=== PATIENT | female | born 1975 | race Caucasian/White ===

== ENCOUNTER 2017-11-24 10:21 | Outpatient (REF) | payer MEDICAID, SELFPAY ==
--- NOTE | 2017-11-24 08:45 | PAPFT_PTH ---
PATIENT: Shanon Price LOC: [facility] U#:[id number] AGE/SX: 42/F ROOM: RE11/24/[address]: ADAM Barrios : 1975 BED: DIS: 11/24/2017 SPEC #: [id number] RECD: 11/24/17 13:04 STATUS: DANNY MORRELL #: [id number] ED: 11/24/17 08:[address]: Emma Tello DEPT: [facility] Cytology RECD BY: Jeanne Vidal ENTERED: 11/24/17 13:04 SP TYPE: PAPFT OT DR: Joanie Burns MD Tissues: 1 - CX/ENDOCX FOR PAP SMEARS Procedures: PAP THIN PREP/UVM Screening Comments: [id number]
== END 2017-11-24 10:41 ==
LOC: LBN 10:21
PROVIDERS: PCP Family Medicine; Visit Provider Nurse Practitioner Family
DX: R10.2 Pelvic and perineal pain (principal); Z12.4 Encounter for screening for malignant neoplasm of cervix
CPT/HCPCS: 88142; 87086

== ENCOUNTER 2018-04-18 08:08 | Emergency (ER) | payer MEDICAID, SELFPAY ==
[2018-04-18 08:12] VITALS: BP 136/84; PULSE 89; RESP 16; TEMP 37; O2SAT 95
--- NOTE | 2018-04-18 08:27 | ED.GENADUL_ITS ---
Discharge Plan Disposition Patient Disposition: HOME Condition: Improving Discharge Details Chief Complaint: Orthopedic Clinical Impression: Strain of right knee Primary Care Provider: Joanie Burns ED Provider: Stanley Lind Home Meds and New Rx's Prescriptions: Continued bupropion HCl 300 mg tablet extended release 24 hr 300 mg PO QAM Qty: 90 RF: 2 multivitamin 1 EACH tablet 1 tab PO DAILY RF: 0 cholecalciferol (vitamin D3) [Vitamin D3] 2,000 UNIT capsule 2,000 unit PO DAILY Qty: 90 RF: 4 omeprazole 20 mg capsule,delayed release(DR/EC) 20 mg PO DAILY Qty: 90 RF: 2 Discharge Instructions Instructions: Swollen Knee Joint (ED) Additional Instructions: Wear knee brace when up and walking, may remove at rest, in bed, to bathe. Please perform daily range of motion exercises as discussed. Crutches with weightbearing as tolerated. We will placed your name on the orthopedic follow-up list for reevaluation. Please call the office at [phone] and 24-48 hours for an appointment time. Ice and elevate to reduce pain and swelling. Tylenol and/or ibuprofen if needed for discomfort. Return if you develop numbness, tingling, cold or blue toes, or any other acute concerns Medical Decision Making Otherwise healthy 42-year-old female who slipped while trying to get into her truck when her right foot slipped off the running board and she struck the ground on an extended leg. She complained of knee pain that lasted through the night, minimally improved with elevation, worsened again this morning when trying to ambulate. She arrives with normal vital signs, otherwise unconcerned exam, and knee that appears contused and mildly swollen. She does not demonstrate laxity of the joint on exam. X-ray without bony injury. Will treat with immobilization, crutches with weightbearing as tolerated, follow-up with orthopedics for reevaluation of soft tissue knee injury. Discussed with patient home management as well as follow-up and return precautions HPI General Mode of arrival: ambulatory . Date/Time Provider Initiated Documentation: 04/18/18 08:10 . Limitations to Documentation: no limitations . Information obtained by: patient . History of Present Illness 42 year old F presents to the emergency department with the chief complaint of Right lower extremity pain, described as mild, Quality is described as aching, and is localized to the right and lower extremity. Patient reports no radiation. Patient started experiencing this minute(s) and it has been constant. Rest improves symptom(s), Movement worsens symptoms . Patient notes no other symptoms.. Patient did receive the following treatments prior to arrival, none Related Data Home Medications Medication Instructions Recorded Confirmed multivitamin 1 tab PO DAILY 06/06/12 03/31/18 cholecalciferol (vitamin D3) 2,000 unit PO DAILY #90 tab-cap 18 03/31/18 [Vitamin D3] omeprazole 20 mg capsule,delayed 20 mg PO DAILY #90 tab-cap 18 03/31/18 release bupropion HCl XL 300 mg 24 hr 300 mg PO QAM #90 tab 03/13/18 03/31/18 tablet, extended release Previous Rx's Medication Instructions Recorded cholecalciferol (vitamin D3) 2,000 unit PO DAILY #90 tab-cap 07/25/17 [Vitamin D3] omeprazole 20 mg capsule,delayed 20 mg PO DAILY #90 tab-cap 12/07/17 release bupropion HCl XL 300 mg 24 hr 300 mg PO QAM #90 tab 03/13/18 tablet, extended release Allergies Allergy/AdvReac Type Severity Reaction Status Date / Time codeine Allergy Intermediate Rash Unverified 04/18/18 08:15 General Stated Complaint: Orthopedic RAYMOND: 4 Review of Systems Review of Systems 6 systems reviewed and otherwise negative [facility] Medical History Personal history of cervical dysplasia (Acute) Surgical History Dilation and curettage Ligation of fallopian tube Family History Mother Diabetes Essential hypertension Heart disease Stroke Father Asthma Cancer Sister Substance abuse Diabetes Sister No problems noted. Sister No problems noted. Brother No problems noted. Brother No problems noted. Brother No problems noted. Son No problems noted. Daughter No problems noted. Social History caregiver/support person: No household members: spouse and children housing: house pets and animals: Yes pets and animals: dog(s) sexually active: Yes do you think of yourself as: straight/heterosexual frequency: does not exercise Smoking and Tabacco status: Former Tobacco Use quit date: 02/22/16 alcohol intake: current alcohol intake frequency: holidays/special occasions only Alcohol type: beer substance use type: does not use doris/rastafari: No preference special doris needs: No Seatbelt use: always Female Reproductive History Menstrual Duration of menses: 6-7 days control method: progestin IUCD History History 3 Para Hx # Term Pregnancies 2 Multiple births Hx # Pregnancies Ectopic pregnancies AB induced Hx Number of Living Children AB spontaneous Exam Narrative Exam Narrative: GEN: awake, alert, oriented 3. Pleasant, well groomed, interactive. HEAD: Normocephalic, atraumatic ENT: Mucous membranes moist, oropharynx unremarkable, External ear exam unremarkable EYES: PERRL, EOMI NECK: Full ROM, no ALEJANDRO, no menigismus CHEST/RESP: Nontender, no respiratory EXT: Full ROM, no edema, no rash. Exam of the right knee reveals mild, diffuse tenderness. There is bruising on the lateral aspect. She is tender along the lateral aspect of the knee. She does not demonstrate laxity. No tenderness of the overlying the patella. No tenderness of the proximal tibia Neuro: Grossly normal neurologic exam, conversant, interactive. Psych: Speech fluent, thoughts congruent, affect normal Course Vital Signs Temperature 37 C 04/18/18 08:12 Pulse 89 04/18/18 08:12 Respiratory Rate 16 04/18/18 08:12 Blood Pressure 136/84 04/18/18 08:12 Pulse Oximetry 95 04/18/18 08:12 Temperature 37 C 04/18/18 08:12 Temperature Source Skin 04/18/18 08:12 Pulse 89 04/18/18 08:12 Respiratory Rate 16 04/18/18 08:12 Blood Pressure 136/84 04/18/18 08:12 Pulse Oximetry 95 04/18/18 08:12 Oxygen Delivery Method Room Air 04/18/18 08:12 Oxygen Flow Rate 0 04/18/18 08:12 Pain Level 9 04/18/18 08:12
--- NOTE | 2018-04-18 08:31 | DI.RAD_ITS ---
SYMPTOM/DIAGNOSIS: FELL, RT KNEE PAIN RIGHT KNEE: Four views. Comparison is made with 07/15/13. No acute fracture or dislocation is seen. There is a small joint effusion present. The soft tissues are otherwise unremarkable. IMPRESSION: Small joint effusion. No acute fracture or dislocation.
[2018-04-18] MEDS: Ibuprofen 800 MG TAB PO (09:10)
== END 2018-04-18 09:48 | disposition home or self-care (01) ==
PROVIDERS: Emergency Provider Emergency Medicine; PCP Family Medicine
DX: S83.91XA Sprain of unspecified site of right knee, initial encounter (principal); X50.9XXA Other and unspecified overexertion or strenuous movements or postures, initial encounter; V58.5XXA Driver of pick-up truck or van injured in noncollision transport accident in traffic accident, initial encounter
CPT/HCPCS: 29505; 73562; 99283; E0114; L1830

== ENCOUNTER 2018-07-25 02:04 | Outpatient (CLI) | payer MEDICAID, SELFPAY ==
[2018-07-25 11:05] LABS: Anion Gap 9.4 mmol/L (3-11); BUN 19 mg/dL (7-18); CO2 24.6 mmol/L (21.0-32.0); CREATININE 0.84 mg/dL (0.55-1.02); Chloride 103 mmol/L (98-107); Glucose 98 mg/dL (70-100); Potassium 4.2 mmol/L (3.5-5.1); Sodium 137 mmol/L (136-145)
[2018-07-25 11:18] LABS: Hemoglobin A1C 5.7 % (4.5-6.2)
[2018-07-27 06:25] LABS: Vitamin D 25 Total 48.2 ng/ml (30-100)
== END 2018-07-25 02:24 ==
PROVIDERS: PCP Family Medicine; Visit Provider Family Medicine
DX: R73.9 Hyperglycemia, unspecified (principal); E55.9 Vitamin D deficiency, unspecified
CPT/HCPCS: 36415; 80048; 82306; 83036

== ENCOUNTER 2018-12-14 10:02 | Outpatient (REF) | payer MEDICAID, SELFPAY ==
--- NOTE | 2018-12-14 09:30 | PAPFT_PTH ---
PATIENT: Shanon Price LOC: [facility] U#:[id number] AGE/SX: 43/F ROOM: RE12/14/[address]: ADAM Barrios : 1975 BED: DIS: 12/14/2018 SPEC #: [id number] RECD: 12/14/18 13:17 STATUS: DANNY RERuddy #: [id number] ED: 12/14/18 09:[address]: Emma Tello DEPT: [facility] Cytology RECD BY: Jeanne Vidal ENTERED: 12/14/18 13:18 SP TYPE: PAPFT OT DR: Joanie Burns MD Tissues: 1 - CX/ENDOCX FOR PAP SMEARS Procedures: PAP THIN PREP/UVM Screening Comments: [id number]
== END 2018-12-14 10:22 ==
LOC: LBN 10:02
PROVIDERS: PCP Family Medicine; Visit Provider Nurse Practitioner Family
DX: Z12.4 Encounter for screening for malignant neoplasm of cervix (principal)
CPT/HCPCS: 88142

== ENCOUNTER → 2020-01-01 09:43 | Outpatient (REF) | payer OTHER, SELFPAY ==
--- NOTE | 2020-01-01 09:15 | PAPFT_PTH ---
PATIENT: Shanon Price LOC: [facility] U#:[id number] AGE/SX: 49/F ROOM: RE01/01/[address]: ADAM Barrios : 1975 BED: DIS: SPEC #: [id number] RECD: 01/01/20 12:43 STATUS: DANNY REQ #: [id number] ED: 01/01/20 09:[address]: Emma Tello DEPT: [facility] Cytology RECD BY: Jeanne Vidal ENTERED: 01/01/20 12:44 SP TYPE: PAPFT OTHR DR: Joanie Burns MD Tissues: 1 - CX/ENDOCX FOR PAP SMEARS Procedures: PAP THIN PREP/UVM Screening HPV DNA PROBE Comments: [id number] (CVPH#)
== END ==
LOC: LBN 09:43
PROVIDERS: PCP Family Medicine; Visit Provider Nurse Practitioner Family
DX: Z12.4 Encounter for screening for malignant neoplasm of cervix; Z11.51 Encounter for screening for human papillomavirus (HPV); R30.0 Dysuria
CPT/HCPCS: 87077; 88142; 87086; 87186; 87624

== ENCOUNTER 2020-01-29 02:11 | Outpatient (CLI) | payer OTHER, SELFPAY ==
--- NOTE | 2020-01-29 11:14 | DI.MAMMO_ITS ---
EXAM: MAMMO SCREENING CLINICAL HISTORY: screening TECHNIQUE: Mammograms were interpreted according to the usual protocol including computer analysis w [employer] CAD system, tomosynthesis and C-view imaging. COMPARISON: FINDINGS: The breasts are of moderate density with fairly symmetrical distribution of fibroglandular tissue. N o dominant mass or clumped microcalcification is identified in either breast. Today's examination is a baseline examination. IMPRESSION: No specific evidence of malignancy at this time. Routine screening examinations are suggested at yea rly intervals in this age group according to the ACR guidelines. BI-RADS Category 1 - Negative Breast Density - Category B - Scattered areas of fibroglandular density
== END 2020-01-29 02:31 ==
PROVIDERS: PCP Family Medicine; Visit Provider Nurse Practitioner Family
DX: Z12.31 Encounter for screening mammogram for malignant neoplasm of breast (principal)
CPT/HCPCS: 77063; 77067

== ENCOUNTER 2020-06-05 02:59 | Outpatient (CLI) | payer OTHER, SELFPAY ==
[2020-06-05 12:35] LABS: Hemoglobin A1C 5.9 % (<5.7)
[2020-06-05 12:58] LABS: COMMENT (LAB VIEW ONLY) 36.21 mg/dL
[2020-06-05 13:01] LABS: ALT 38 U/L (14-59); AST 14 U/L (15-37); Albumin 3.8 g/dL (3.4-5.0); Alkaline Phosphatase 64 U/L (46-116); Anion Gap 9.3 mmol/L (3-11); BUN 15 mg/dL (7-18); Bilirubin, Total 0.3 mg/dL (0.2-1.0); CO2 26.7 mmol/L (21.0-32.0); CREATININE 0.9 mg/dL (0.55-1.02); Calcium 9.2 mg/dL (8.5-10.1); Chloride 104 mmol/L (98-107); Cholesterol 140 mg/dL (<200); Glucose 107 mg/dL (74-106); Magnesium 1.9 mg/dL (1.8-2.4); Potassium 4.5 mmol/L (3.5-5.1); Sodium 140 mmol/L (136-145); Total Protein 7.1 g/dL (6.4-8.2); Triglyceride 295 mg/dL (<150)
[2020-06-05 13:11] LABS: Calculated LDL 48 mg/dL (<100); HDL Cholesterol 33 mg/dL (40-60)
== END 2020-06-05 03:00 | disposition home or self-care (01) ==
LOC: LOS 03:00
PROVIDERS: PCP Family Medicine; Visit Provider Family Medicine
DX: E11.9 Type 2 diabetes mellitus without complications (principal); E83.42 Hypomagnesemia
CPT/HCPCS: 36415; 80053; 80061; 82043; 82570; 83036; 83735

== ENCOUNTER 2021-02-27 03:40 | Outpatient (CLI) | payer OTHER, SELFPAY ==
[2021-02-27 08:42] LABS: Hemoglobin A1C 6.1 % (<5.7)
[2021-02-27 09:14] LABS: Anion Gap 8.6 mmol/L (3-11); BUN 16 mg/dL (7-18); CO2 27.4 mmol/L (21.0-32.0); CREATININE 0.8 mg/dL (0.55-1.02); Calcium 9.2 mg/dL (8.5-10.1); Chloride 100 mmol/L (98-107); Glucose 120 mg/dL (74-106); Potassium 4.4 mmol/L (3.5-5.1); Sodium 136 mmol/L (136-145)
== END 2021-02-27 03:41 | disposition home or self-care (01) ==
LOC: LBO 03:41
PROVIDERS: PCP Family Medicine; Visit Provider Family Medicine
DX: R73.9 Hyperglycemia, unspecified (principal)
CPT/HCPCS: 36415; 80048; 83036

== ENCOUNTER 2021-04-07 10:00 | Outpatient (REF) | payer OTHER, SELFPAY ==
--- NOTE | 2021-04-07 09:20 | PAPFT_PTH ---
PATIENT: Shanon Price LOC: [facility] U#:[id number] AGE/SX: 45/F ROOM: RE04/07/[address]: ADAM Barrios : 1975 BED: DIS: 04/07/2021 SPEC #: [id number] RECD: 04/07/21 12:42 STATUS: DANNY RERuddy #: [id number] ED: 04/07/21 09:[address]: Emma Tello DEPT: [facility] Cytology RECD BY: Jeanne Vidal ENTERED: 04/07/21 12:43 SP TYPE: PAPFT OTHR DR: Nik Castellanos Tissues: 1 - CX/ENDOCX FOR PAP SMEARS Procedures: PAP THIN PREP/UVM Screening HPV DNA PROBE Comments: [id number]
== END 2021-04-07 10:01 | disposition home or self-care (01) ==
LOC: LBN 10:00
PROVIDERS: PCP Family Medicine; Visit Provider Nurse Practitioner Family
DX: Z12.4 Encounter for screening for malignant neoplasm of cervix (principal); Z11.51 Encounter for screening for human papillomavirus (HPV)
CPT/HCPCS: 88142; 87624

== ENCOUNTER 2021-08-26 02:39 | Outpatient (CLI) | payer OTHER, SELFPAY ==
[2021-08-26 13:17] LABS: Hemoglobin A1C 6.1 % (<5.7)
[2021-08-26 13:22] LABS: COMMENT (LAB VIEW ONLY) < 13.00 mg/dL
[2021-08-26 13:26] LABS: ALT 31 U/L (14-59); Anion Gap 9.2 mmol/L (3-11); BUN 16 mg/dL (7-18); CO2 26.8 mmol/L (21.0-32.0); CREATININE 0.7 mg/dL (0.55-1.02); Calcium 8.8 mg/dL (8.5-10.1); Calculated LDL 60 mg/dL (<100); Chloride 99 mmol/L (98-107); Cholesterol 153 mg/dL (<200); Glucose 120 mg/dL (74-106); HDL Cholesterol 34 mg/dL (40-60); Potassium 4.3 mmol/L (3.5-5.1); Sodium 135 mmol/L (136-145); Triglyceride 297 mg/dL (<150)
[2021-08-27 09:21] LABS: HIV-1/2 Ag & Ab Screen Negative (Negative)
[2021-08-27 09:33] LABS: Hepatitis C Ab w Rflx HCV PCR Negative (Negative)
== END 2021-08-26 02:40 | disposition home or self-care (01) ==
LOC: LOS 02:39
PROVIDERS: PCP Family Medicine; Visit Provider Family Medicine
DX: E11.9 Type 2 diabetes mellitus without complications (principal); Z11.59 Encounter for screening for other viral diseases; Z11.4 Encounter for screening for human immunodeficiency virus [HIV]
CPT/HCPCS: 36415; 80048; 80061; 86803; 87389; 82043; 82570; 83036; 84460

== ENCOUNTER 2021-12-10 15:04 | Outpatient (CLI) | payer OTHER, SELFPAY ==
--- NOTE | 2021-12-10 14:46 | DI.RAD_ITS ---
Exam(s) XR SHOULDER RT COMPLETE 2+V EXAM: XR SHOULDER RT COMPLETE 2+V CLINICAL HISTORY: right shoulder pain M75.41 IMPINGEMENT RT SHOULDER TECHNIQUE: COMPARISON: No exams were available for comparison FINDINGS: Six views were obtained. The cartilaginous joint space of the glenohumeral joint appears fairly well maintained. There are mild hypertrophic degenerative changes of the AC joint and mild marginal oste ophytes of the glenoid. No other bony or soft tissue abnormality seen. IMPRESSION: RADIATION DOSE DELIVERED: Total DLP
== END 2021-12-10 15:24 ==
LOC: DI 15:04
PROVIDERS: PCP Nurse Practitioner Family; Visit Provider Family Medicine
DX: M75.41 Impingement syndrome of right shoulder (principal)
CPT/HCPCS: 73030

== ENCOUNTER 2022-04-12 10:50 | Outpatient (REF) | payer BC, SELFPAY ==
--- NOTE | 2022-04-12 09:00 | PAPFT_PTH ---
PATIENT: Shanon Price LOC: [facility] U#:[id number] AGE/SX: 46/F ROOM: RE04/12/[address]: Rosario Cárdenas NP : 1975 BED: DIS: 04/12/2022 SPEC #: [id number] RECD: 04/12/22 12:57 STATUS: DANNY MORRELL #: [id number] ED: 04/12/22 09:[address]: Rosario Cárdenas NP DEPT: [facility] Cytology RECD BY: Jeanne Vidal ENTERED: 04/12/22 12:57 SP TYPE: PAPFT OTHR DR: Giulia Stern, TOOLROOM CLERK Tissues: 1 - CX/ENDOCX FOR PAP SMEARS Procedures: PAP THIN PREP/UVM Screening HPV DNA PROBE Comments: [id number]
== END 2022-04-12 10:51 | disposition home or self-care (01) ==
LOC: LBN 10:50
PROVIDERS: PCP Nurse Practitioner Family; Visit Provider Nurse Practitioner Women's Health
DX: Z12.4 Encounter for screening for malignant neoplasm of cervix (principal); Z11.51 Encounter for screening for human papillomavirus (HPV); Z87.42 Personal history of other diseases of the female genital tract
CPT/HCPCS: 88142; 87624

== ENCOUNTER 2022-05-10 04:02 | Outpatient (CLI) | payer BC, SELFPAY ==
[2022-05-10 08:55] LABS: Hemoglobin A1C 6.2 % (<5.7)
[2022-05-10 09:00] LABS: ALT 35 U/L (14-59); AST < 5 U/L (15-37); Albumin 3.4 g/dL (3.4-5.0); Alkaline Phosphatase 70 U/L (46-116); BUN 11 mg/dL (7-18); Bilirubin, Total 0.2 mg/dL (0.2-1.0); CREATININE 0.9 mg/dL (0.55-1.02); Calcium 8.5 mg/dL (8.5-10.1); Chloride 101 mmol/L (98-107); Cholesterol 165 mg/dL (<200); Estimated GFR 80.34 (mL/min/1.73m2); Glucose 133 mg/dL (74-106); HDL Cholesterol 25 mg/dL (40-60); Potassium 3.8 mmol/L (3.5-5.1); Sodium 137 mmol/L (136-145); Total Protein 7.3 g/dL (6.4-8.2); Triglyceride 837 mg/dL (<150)
[2022-05-10 09:56] LABS: LDL CHOLESTEROL 52 mg/dL (<100)
== END 2022-05-10 04:03 | disposition home or self-care (01) ==
LOC: LBO 04:03
PROVIDERS: PCP Nurse Practitioner Family; Visit Provider Nurse Practitioner Family
DX: E11.9 Type 2 diabetes mellitus without complications (principal); K76.0 Fatty (change of) liver, not elsewhere classified; R10.12 Left upper quadrant pain
CPT/HCPCS: 36415; 80053; 80061; 83721; 83036

== ENCOUNTER 2022-06-07 14:21 | Outpatient (CLI) | payer BC, SELFPAY ==
--- NOTE | 2022-06-07 14:00 | NS.NUTBLAN_ITS ---
Shanon was referred for weight and lipid management. She was able to consult by phone as did not have ability to make in person visit due to work contraints. 5'1 231 lbs BMI: 42. PMH: morbid obesity, NAFLD, elevated triglycerides Meds: fenofibrate Labs: A1C: 6.2% Diet Recall: B: protein shake, L: 1/2 sub, Dinner: BBQ chicken and salad Exercise: none Provided feedback on how to follow a lower carb meal plan with emphasis on complex carbs, lean protein and healthy fats, Current diet is not excessive in intakes of calories, fat, sugar or salt. Shanon is frustrated that she cannot lose weight despite watching what she eats. Reviewed role of exercise and need for daily activity. Recommend using phone bulmaro to track steps with goal steps at 10K per day. Emailed nutrition education and meal plans. Encouraged face to face appointment when able. No follow up planned at this time.
== END 2022-06-07 14:22 | disposition home or self-care (01) ==
LOC: DS 14:24
PROVIDERS: PCP Nurse Practitioner Family; Visit Provider Dietitian, Registered
DX: E66.01 Morbid (severe) obesity due to excess calories (principal); E78.1 Pure hyperglyceridemia; Z68.41 Body mass index [BMI] 40.0-44.9, adult; Z71.3 Dietary counseling and surveillance
CPT/HCPCS: 97802

== ENCOUNTER 2022-06-23 01:49 | Outpatient (CLI) | payer BC, SELFPAY ==
--- NOTE | 2022-06-23 12:28 | DI.MAMMO_ITS ---
Exam(s) MAMMO SCREENING EXAM: MAMMO SCREENING CLINICAL HISTORY: screening,Z12.39 TECHNIQUE: Bilateral full field digital CC and MLO mammographic images were obtained with 3D tomosyn thesis and utilizing computer aided detection (CAD). COMPARISON: Available for comparison. FINDINGS: Masses/Architectural Distortion: None seen. Microcalcifications: No suspicious pleomorphic-type are seen. Skin Thickening/Nipple Retraction: None. IMPRESSION: 1. No significant interval change with no specific features of malignancy noted. 2. Unless there is more urgent need, screening mammography is recommended, as per [employer] guidelines. BI-RADS Category 1 - Negative Breast Density - Category A - Almost entirely fatty Breast density category C or D implies that the patient has dense breast tissue. Dense breast tissue is very common and is not abnormal but dense breast tissue can make it harder to find cancer on a ma mmogram. Also, dense breast tissue may increase their breast cancer risk. This information about the result of the mammogram report was provided to the patient to raise their awareness. Use this report when you speak with the patient about their risks for breast cancer, which includes their family hist ory. At that time, you may recommend for more screening tests (Ultrasound or MRI) as they might be us eful based on their risk. A negative radiographic report should not delay biopsy if a dominant or clinically suspicious mass is present. Up to ten percent of cancers are not identified on mammography. A negative report may reinforce clinical impression. Adenosis and dense breasts may obscure an underlying neoplasm. False positive reports average 6 to 10%. Patient will receive a letter notifying them of these results.
== END 2022-06-23 02:09 ==
PROVIDERS: PCP Nurse Practitioner Family; Visit Provider Nurse Practitioner Women's Health
DX: Z12.31 Encounter for screening mammogram for malignant neoplasm of breast (principal)
CPT/HCPCS: 77063; 77067

== ENCOUNTER 2022-07-20 04:24 | Outpatient (CLI) | payer BC, SELFPAY ==
--- NOTE | 2022-07-20 10:00 | NS.NUTBLAN_ITS ---
Shanon was referred for weight management education. 5'0 232 lbs BMI: 42 PMH: morbid obesity, NAFLD, elevated triglycerides, pre DM, Sleep apnea. Strong family hx of Dm2 Meds: none, unable to tolerate lipid lowering medication. Diet Recall: B: protein shake, Lunch: 1/2 sandwich and Dinner: BBQ and salad Exercise none: owns 2 businesses, sedentary Shanon reports that last year she started the process to get weight loss [place] [facility] [place] She is considering it again as she has had no luck losing weight in last couple of years. Her lowest weight was 185 lbs after her son was born. Session today focused on weight loss surgery options and pre and post surgery diets. We also touched on how to follow a very low carb diet with primarily includes protein shakes at [employer], salad and protein for dinner. Encouraged use of pedometer and to get a sit/stand desk at work for more activity during work day. Also, discussed how Ozempic/wegogy can aid in weight loss. Will call back for follow up.
== END 2022-07-20 04:25 | disposition home or self-care (01) ==
LOC: DS 04:24
PROVIDERS: PCP Nurse Practitioner Family; Visit Provider Dietitian, Registered
DX: E66.01 Morbid (severe) obesity due to excess calories (principal); Z68.41 Body mass index [BMI] 40.0-44.9, adult; Z71.3 Dietary counseling and surveillance
CPT/HCPCS: 97802

== ENCOUNTER 2023-06-06 08:46 | Outpatient (REF) | payer BC, SELFPAY ==
--- NOTE | 2023-06-06 08:25 | PAPFT_PTH ---
PATIENT: Shanon Price LOC: [facility] U#:[id number] AGE/SX: 48/F ROOM: RE06/06/[address]: Rosario Cárdenas NP : 1975 BED: DIS: 06/06/2023 SPEC #: [id number] RECD: 06/06/23 17:59 STATUS: DANNY RERuddy #: [id number] ED: 06/06/23 08:[address]: Rosario Cárdenas NP DEPT: [facility] Cytology RECD BY: Jeanne Vidal ENTERED: 06/06/23 17:59 SP TYPE: PAPFT OTHR DR: Giulia Stern, ADAM Tissues: 1 - CX/ENDOCX FOR PAP SMEARS Procedures: PAP THIN PREP/UVM Screening HPV DNA PROBE Comments: [id number]
== END 2023-06-06 08:47 | disposition home or self-care (01) ==
LOC: LBN 08:46
PROVIDERS: PCP Nurse Practitioner Family; Visit Provider Nurse Practitioner Women's Health
DX: Z30.431 Encounter for routine checking of intrauterine contraceptive device; Z12.4 Encounter for screening for malignant neoplasm of cervix
CPT/HCPCS: 88142; 87624

== ENCOUNTER → 2023-08-09 02:48 | Outpatient (CLI) | payer BC, SELFPAY | PROVIDERS: PCP Nurse Practitioner Family; Visit Provider Nurse Practitioner Women's Health | DX: Z12.31 Encounter for screening mammogram for malignant neoplasm of breast (principal) | CPT/HCPCS: 77063; 77067 ==

== ENCOUNTER 2023-08-17 01:54 | Outpatient (CLI) | payer BC, SELFPAY ==
[2023-08-17 08:52] LABS: Calculated LDL 81 mg/dL (<100); Cholesterol 163 mg/dL (<200); HDL Cholesterol 48 mg/dL (40-60); Triglyceride 170 mg/dL (<150)
[2023-08-17 08:54] LABS: Hemoglobin A1C 5.4 % (<5.7)
[2023-08-17 21:30] LABS: HBs Antibody, Quant <3.1 mIU/mL (See Note); Hep B Surface Ab Negative (See Note); Hepatitis B Core Antibody Negative (Negative); Hepatitis B Surface Antigen Negative (Negative)
== END 2023-08-17 01:55 | disposition home or self-care (01) ==
LOC: LBO 01:54
PROVIDERS: PCP Nurse Practitioner Family; Visit Provider Nurse Practitioner Family
DX: Z00.00 Encounter for general adult medical examination without abnormal findings (principal); Z11.59 Encounter for screening for other viral diseases; R73.03 Prediabetes
CPT/HCPCS: 36415; 80061; 86704; 86706; 87340; 83036